=== PATIENT | female | born 1965 | race Caucasian/White ===

== ENCOUNTER 2018-04-07 07:45 | Day surgery (SDC) | payer OTHER ==
[~2018-04-07] VITALS: Ht 157.5 cm; Wt 75.8 kg
[~2018-04-07 07:45] MED LIST: OMEPRAZOLE40 MG PO
--- NOTE | 2018-04-07 09:23 | NUR ---
04/07/18 0923 Isabel Moran 0992 PT ARRIVED ON 3L VIA NC, RESP EVEN AND UNLABORED. PT REACTIVE TO VERBAL STIMULI. PT DENIES PAIN AND IS BACK TO SLEEP.
--- NOTE | 2018-04-08 06:39 | OR ---
[facility] [address], [place] [address] Signed DATE OF OPERATION: 04/07/2018 SURGEON: Cassie Lew MD PREOPERATIVE DIAGNOSES: 1. Heartburn. 2. Nausea. 3. Hoarse voice. 4. Alternating constipation-diarrhea. 5. Generalized abdominal pain. POSTOPERATIVE DIAGNOSES: 1. Tiny hiatal hernia. 2. Benign proximal gastric polyps. 3. Mild diffuse gastritis. 4. Minimal sigmoid diverticulosis. PROCEDURES: 1. EGD with CLOtest and biopsies of the antrum and gastric polyp. 2. Colonoscopy without biopsy. ESTIMATED BLOOD LOSS: None. INDICATIONS: Marie is a 52-year-old female who was asked to see me for upper and lower endoscopy. She has had trouble with heartburn, nausea, and a hoarse voice. She had been to see her Ear, Nose, and Throat physician. There was obviously concerns about acid reflux. In addition, she has had trouble with alternating constipation, diarrhea for quite some time. In fact, at age 42, she had a colonoscopy because of all GI issues. She said everything seemed to come out okay on the test. She told me there is no family history of colon cancer or polyps. She also suffers with some generalized abdominal pain. She has been using her omeprazole for her acid reflux issues. In the office, I gave her pamphlets on both upper and lower endoscopy. We have discussed the nature of the 2 tests along with the risks including, but not limited to gas bloating, crampy abdominal pain, bleeding, perforation, requiring surgery, and missed diagnosis. We also discussed the need for IV conscious sedation. She had expressed understanding and wished to proceed. DESCRIPTION OF PROCEDURE: Electronically Signed By: CASSIE LEW MD 04/08/18 0639 PATIENT NAME: MARIE SMITH OPERATIVE REPORT DATE OF : 65 REPORT #: [id number] PHYSICIAN: CASSIE LEW MD PCP: BERRY COOPER MD REPORT IS CONFIDENTIAL AND NOT TO BE RELEASED WITHOUT AUTHORIZATION [facility] [address], [place] [address] Signed Marie was taken into our endoscopy suite and placed in the supine semi-recumbent position. She was given IV sedation with a total of 6 mg of Versed and 150 mcg of fentanyl to cover both upper and lower endoscopy. The posterior oropharynx was anesthetized with Hurricaine spray. A bite block was utilized for the case. After this, the adult gastroscope was introduced and advanced all way out into the third portion of the duodenum under direct visualization of camera without difficulty. Her duodenum and pyloric channel were unremarkable. The stomach showed very mild superficial diffuse erythematous changes consistent with mild gastritis. No ulcerations noted. She does have multiple polyps in the proximal half of the stomach consistent with using a proton pump inhibitor. We took biopsies out of the antrum for pathologic review as well as CLOtest. We also removed one of the polyps for pathologic review. Upon retroflexion of the scope, she has a very small hiatal hernia. The gastric tissue is getting drawn over the GE junction just to a small amount. No evidence of any gastric or esophageal varices. The scope was withdrawn up through the area of GE junction, which was compliant without stricture. There was no Tracie-Blanco tear. No Home ulcer. Really only minimal if any disruption to the Z-line. No Cabrera's mucosa. No distal esophagitis. The middle and upper esophagus were unremarkable. The gas had been suctioned out and the gastroscope removed. It looks like the vocal cords and the arytenoids are all fine and without erythema or edema. Marie had tolerated her upper endoscopy quite well. Marie was then rotated into the left lateral decubitus position. She was maintained on IV sedation with the Versed and fentanyl. A digital rectal exam was performed and this was unremarkable. The adult colonoscope was introduced and advanced under direct visualization of camera without difficulty into the cecum itself. Her prep was quite good. The scope was then slowly withdrawn. She does have a few diverticula in the sigmoid colon. They were minimal to moderate in size, few in number, and scattered about. The rectum itself was unremarkable. Upon retroflexion of scope, we saw no evidence of any internal hemorrhoid tissue. After this, the gas was suctioned out and the colonoscope removed. Marie tolerated the procedure quite well. RECOMMENDATIONS: I will see Marie back in my office in 7 to 14 days to review her current results. She might consider addressing her anxiety with her primary care provider. That may actually help more than the omeprazole. Cassie Lew MD Electronically Signed By: CASSIE LEW MD 04/08/18 0639 PATIENT NAME: MARIE SMITH OPERATIVE REPORT DATE OF : 65 REPORT #: [id number] PHYSICIAN: CASSIE LEW MD PCP: BERRY COOPER MD REPORT IS CONFIDENTIAL AND NOT TO BE RELEASED WITHOUT AUTHORIZATION [place] [id number] Signed ALB/MODL /[id number] cc: MD Berry Navarro MD Steven L Neal, MD Copies: CASSIE LEW MD, CHRISTOPHER MD NEAL, STEVEN L MD ~ Electronically Signed By: CASSIE LEW MD 04/08/18 0639 PATIENT NAME: MARIE SMITH OPERATIVE REPORT DATE OF : 65 REPORT #: [id number] PHYSICIAN: CASSIE LEW MD PCP: BERRY COOPER MD REPORT IS CONFIDENTIAL AND NOT TO BE RELEASED WITHOUT AUTHORIZATION
== END 2018-04-07 10:04 | disposition home or self-care (01) ==
LOC: OPS 07:45 → DS 09:00 → OPS 10:04
PROVIDERS: Colon & Rectal Surgery
PROC: 0DB68ZX Excision of Stomach, Via Natural or Artificial Opening Endoscopic, Diagnostic (ICD-10-PCS; 2018-04-07)
PROC: 0DJD8ZZ Inspection of Lower Intestinal Tract, Via Natural or Artificial Opening Endoscopic (ICD-10-PCS; principal; 2018-04-07 09:00)
PROC: 0DB78ZX Excision of Stomach, Pylorus, Via Natural or Artificial Opening Endoscopic, Diagnostic (ICD-10-PCS; 2018-04-07 09:00)
DX: K29.50 Unspecified chronic gastritis without bleeding (principal); K57.30 Diverticulosis of large intestine without perforation or abscess without bleeding; K59.00 Constipation, unspecified; K44.9 Diaphragmatic hernia without obstruction or gangrene; K31.7 Polyp of stomach and duodenum; Z88.2 Allergy status to sulfonamides; Z88.5 Allergy status to narcotic agent; Z79.899 Other long term (current) drug therapy
CPT/HCPCS: 86677; 99153; G0500; J2250; J3010; J7120